=== PATIENT | male | born 1995 | race Asian ===

== ENCOUNTER 2017-05-31 11:11 | Emergency (ER) | payer OTHER ==
[~2017-05-31] VITALS: Ht 188 cm; Wt 92.0 kg
[2017-05-31 11:13] VITALS: BP 145/69; PULSE 89; RESP 16; TEMP 96.8; O2SAT 97
[2017-05-31] MEDS ORDERED: BENZ100 PO (12:40)
--- NOTE | 2017-05-31 12:43 | PD ---
HPI Chief Complaint: Cold / Flu Symptoms Time Seen by Provider: 12:39 Travel History International Travel<30 days: No Contact w/Intl Traveler<30days: No Traveled to known affect area: No History of Present Illness HPI 21-year-old male presents for evaluation of cough. Symptoms started 1 week ago. The cough is productive with yellow sputum. He has been using over-the- counter NyQuil and DayQuil which has been helping some with his symptoms. Symptoms have persisted which prompted evaluation today. He denies any dyspnea , fevers, chills, myalgias, sore throat, nasal congestion, rash or recent travel. He reports that his girlfriend is starting to develop similar symptoms. He has no significant past medical history. No other complaints at this time. [facility] Past Medical History Medical History: Denies Significant Hx Social History Alcohol Use: No Tobacco Use: No Allergies-Medications (Allergen,Severity, Reaction): Coded Allergies: Penicillins (Verified Allergy, Unknown, 05/31/17) Reported Meds & Prescriptions Reported Meds & Active Scripts Active Tessalon Perles (Benzonatate) 100 Mg Cap 100 Mg PO TID PRN Review of Systems Except as stated in HPI: all other systems reviewed are Neg Physical Exam Narrative GENERAL: Well developed well-nourished male in no acute distress sitting upright in hospital bed vital signs reviewed SKIN: Warm and dry. HEAD: Atraumatic. Normocephalic. EYES: Pupils equal and round. No scleral icterus. No injection or drainage. ENT: No nasal bleeding or discharge. Mucous membranes pink and moist. No oral pharyngeal erythema or exudate. NECK: Trachea midline. No JVD. No lymphadenopathy. Neck supple full range of motion. CARDIOVASCULAR: Regular rate and rhythm. No murmur appreciated. RESPIRATORY: No accessory muscle use. Clear to auscultation. Breath sounds equal bilaterally. No crackles no wheezing or rhonchi Data Data Last Documented VS Vital Signs Date Time Temp Pulse Resp B/P (MAP) Pulse Ox O2 Delivery O2 Flow Rate FiO2 05/31/17 11:13 96.8 89 16 145/69 (94) 97 MDM Medical Decision Making Medical Screen Exam Complete: Yes Emergency Medical Condition: Yes Medical Record Reviewed: Yes Differential Diagnosis Bronchitis, pneumonia, reactive airway disease, bronchiectasis, sinusitis, influenza Narrative Course 21-year-old male with 1 week of productive cough. He appears well. His lungs are clear to auscultation. ENT examination is unremarkable. His examination is consistent with viral bronchitis. He will be discharged with antitussive medication. Diagnosis Primary Impression: Bronchitis Additional Instructions: Medication as needed for cough. Can continue using [id number] NyQuil and DayQuil. Wash hands frequently, cover mouth when coughing. Return for any emergent medical conditions. Med/Other Pt SpecificInfo: Prescription(s) given Scripts Benzonatate (Tessalon Perles) 100 Mg Cap 100 MG PO TID Y for COUGH, #30 CAP 0 Refills Prov: Taj Chan MD 05/31/17 Disposition: 01 DISCHARGE HOME Condition: Stable Donato Daugherty May 31, 2017 12:43
== END 2017-05-31 13:02 | disposition home or self-care (01) ==
LOC: NEPK 11:11
DX: J40 Bronchitis, not specified as acute or chronic (principal); Z88.0 Allergy status to penicillin
CPT/HCPCS: 99283